=== PATIENT | male | born 1965 | race Caucasian/White ===

== ENCOUNTER 2018-07-30 13:58 | Day surgery (SDC) | payer OTHER ==
[~2018-07-30 13:58] MED LIST: EPHEDrine SULFATE 50 MG/5 ML SYG
[2018-07-30 15:09] LABS: ADD MAN DIFF? NO
[2018-07-30 15:11] LABS: WHITE BLOOD COUNT 7.2 10^3/ul (4.8-10.8)
[2018-07-30 15:11] LABS: BASOPHILS % 0.6 % (0.0-2.0); EOSINOPHILS # 0.1 10^3/ul (0.0-0.5); EOSINOPHILS % 1.1 % (0.0-7.0); HEMATOCRIT 45.2 % (42.0-52.0); HEMOGLOBIN 15.7 g/dl (14.0-18.0); LYMPHOCYTES # 1.6 10^3/ul (0.8-2.9); LYMPHOCYTES % 22.1 % (15.0-51.0); MEAN CORPUSCULAR HGB CONC 34.7 g/dl (32.0-37.0); MEAN CORPUSCULAR VOLUME 89.3 fl (82.0-101.0); MEAN PLATELET VOLUME 9.7 fl (7.4-10.4); MONOCYTE # 0.5 10^3/ul (0.3-0.9); MONOCYTES % 7.3 % (0.0-11.0); NEUTROPHIL # 4.9 10^3/ul (1.6-7.5); NEUTROPHILS % 68.5 % (39.0-77.0); PLATELET COUNT 298 10^3/UL (140-415); RED BLOOD COUNT 5.06 10^6/ul (4.70-6.10); RED CELL DISTRIBUTION WIDTH 11.6 % (11.5-14.5)
[2018-07-30 15:44] LABS: ADD UMIC NO; UR ASCORBIC ACID 20 mg/dL (NEGATIVE); UR BILIRUBIN (Dip) NEGATIVE (NEGATIVE); UR BLOOD (Dip) NEGATIVE (NEGATIVE); UR CLARITY CLEAR (CLEAR); UR COLOR YELLOW (YELLOW); UR GLUCOSE (Dip) NEGATIVE (NEGATIVE); UR KETONES (Dip) NEGATIVE (NEGATIVE); UR LEUKOCYTE ESTERASE (Dip) NEGATIVE Leu/ul (NEGATIVE); UR NITRITE (Dip) NEGATIVE (NEGATIVE); UR SPECIFIC GRAVITY (Dip) 1.015 (1.003-1.030); UR TOTAL PROTEIN (Dip) NEGATIVE (NEGATIVE); UR UROBILINOGEN (Dip) NEGATIVE (NEGATIVE)
[2018-07-30] MEDS ORDERED: ROCURONIUM 50 MG INJ (16:24)
[2018-07-30] MEDS ORDERED: PROPOFOL 20 ML (16:24)
[2018-07-30] MEDS ORDERED: MIDAZOLAM 1 MG/ML 2 ML INJ (16:24)
[2018-07-30] MEDS ORDERED: CEFAZOLIN 1 GM INJ (16:24)
[2018-07-30] MEDS ORDERED: ROPIVACAINE 0.5 % 30 ML VIAL ×2 (16:25→16:40)
[2018-07-30] MEDS ORDERED: OXYCODONE/ACETAMINOPHEN (5/325) TAB PO ×2 (16:30)
[2018-07-30] MEDS ORDERED: LABETALOL HCL 20MG INJ IV (16:30)
[2018-07-30] MEDS ORDERED: MEPERIDINE 25 MG INJ IV (16:30)
[2018-07-30] MEDS ORDERED: EPHEDrine SULFATE 50 MG/5 ML SYG IV (16:30)
[2018-07-30] MEDS ORDERED: hydrALAzine 20 MG INJ IV (16:30)
[2018-07-30] MEDS ORDERED: HYDROmorphONE 1 MG/5 ML IV SYRINGE IV (16:30)
[2018-07-30] MEDS ORDERED: METOCLOPRAMIDE 10 MG INJ IV (16:30)
[2018-07-30] MEDS ORDERED: FENTAnyl 50 MCG/ML VIAL IV ×3 (16:30)
[2018-07-30] MEDS ORDERED: DIPHENHYDRAMINE 50 MG INJ IV (16:30)
[2018-07-30] MEDS ORDERED: LIDOCAINE 1% (MPF) 30 ML INJ (16:40)
[2018-07-30] MEDS ORDERED: morphine SULFATE/PF (10 MG/10 ML) INJ (16:41)
[2018-07-30] MEDS ORDERED: BUPIVACAINE 0.5% (SDV) 30 ML INJ (17:36)
[2018-07-30] MEDS: BUPIVACAINE 0.5% (MPF) 30 ML INJ INJ (17:52)
[2018-07-30] MEDS: LIDOCAINE 1%/EPI (1:100,000) (MDV) 20 ML (17:53)
[2018-07-30] MEDS ORDERED: DEXAMETHASONE 4 MG/ML 5 ML INJ (18:03)
[2018-07-30] MEDS ORDERED: KETOROLAC 30 MG INJ (18:03)
[2018-07-30] MEDS ORDERED: ONDANSETRON 4 MG INJ (18:03)
[2018-07-30] MEDS ORDERED: METOCLOPRAMIDE 10 MG INJ (18:03)
[2018-07-30] MEDS: HYDROmorphONE 1 MG/5 ML IV SYRINGE IV ×2 (19:57→20:12)
[2018-07-30] MEDS: ONDANSETRON 4 MG INJ IV (19:57)
== END 2018-07-30 21:27 | disposition home or self-care (01) ==
LOC: SDS 13:58
DX: S52.572D Other intraarticular fracture of lower end of left radius, subsequent encounter for closed fracture with routine healing (principal); X58.XXXD Exposure to other specified factors, subsequent encounter
CPT/HCPCS: 25608; 73110-LT; 81003; 85025; 93005